=== PATIENT | male | born 1990 | race Caucasian/White ===

== ENCOUNTER 2019-06-03 10:09 | Observation (INO) | payer OTHER, SELFPAY ==
[2019-06-03] VITALS (8 sets, daily range): BP systolic 107–121; BP diastolic 56–92; PULSE 60–84; RESP 14–18; TEMP 36.9–37.3; O2SAT 96–100; BMI 26.2; BMI 25.4
--- NOTE | 2019-06-03 10:16 | EKG12_ITS ---
Test Reason : CP Blood Pressure : / mmHG Vent. Rate : 063 BPM Atrial Rate : 063 BPM P-R Int : 134 ms QRS Dur : 106 ms QT Int : 364 ms P-R-T Axes : 052 066 055 degrees QTc Int : 372 ms Normal sinus rhythm Nonspecific T wave abnormality Abnormal ECG Confirmed by SOREN BALBUENA, JELANI ([id number]), commissioning editor SANTOS BUTT ([id number]) on 06/10/2019 8:41:15 AM Referred By: Elizabeth Benavidez Confirmed By:JELANI DOTY MD
--- NOTE | 2019-06-03 10:45 | RAD_ITS ---
STUDY: X-RAY CHEST REASON FOR EXAM: Male, 28 years old. 24 hour history of right-sided chest pain. TECHNIQUE: Single AP portable view of the chest. COMPARISON: None. FINDINGS: There is evidence of a 10% right pneumothorax. Hyperinflation. Normal size heart. Normal mediastinum and yolette. Normal visualized pulmonary arteries. Normal visualized aortic arch and descending thoracic aorta. Normal visualized thoracic spine. Normal visualized ribs, clavicles, and shoulders. There is no demonstrated abnormality of the visualized soft tissue structures of the upper abdomen. RAD/Chest PA and Lateral IMPRESSION: 10% right pneumothorax. The referring physician was notified. Electronically Signed: Simon Fan, at 11:03 EST , Service support ,
--- NOTE | 2019-06-03 10:51 | ED.DCSUM_ITS ---
- ER Visit Summary Date of Service: 06/03/19 Chief Complaint: Chest pain History of Present Illness: The patient is a 28 M who presents the emergency department with right-sided chest pain. Symptoms began yesterday around 1230. He notes he developed some runny nose and a cough that rarely produces sputum. He states that when he coughs he has more pain on the right side of his chest and back. He states he is felt some wheezing. He denies any history of asthma. No fevers. States that he used to vape but quit several months ago. Denies any chest trauma Physical Examination: Afebrile vital signs are stable Gen: Well-nourished well-developed Head: Normocephalic atraumatic Eyes: Perrl EOMI ENT: TMs clear no rhinorrhea moist mucous membranes Neck: Supple no lymphadenopathy no JVD nontender CVS: Regular rate rhythm no murmurs normal S1-S2 Respiratory: No distress diminished breath sounds on the right chest nontender no crepitance Abdomen: Soft nontender nondistended normal bowel sounds no masses Back: Nontender Extremity: Nontender no edema Skin: Normal color no rash Neuro: alert orientated ?3 CN II-XII intact normal strength sensation reflexes gait cerebellar Psych: Normal affect normal mood Test Results: Chest x-rays obtained. This showed a 10 to 15% spontaneous pneumothorax on the right. Emergency Department Course and Treatment: Chest x-ray findings were discussed with the patient. I spoke with our ekg/ecg technician is youth care professional Dr. Null. Recommendation is for a pigtail catheter to wall suction and overnight stay. I informed the patient of this and he states he is not sure he wants this done. After further discussion the patient provides informed consent both verbal and written for the procedure. She was advised on the risk including but not limited to infection, bleeding, adequate placement of catheter, and pain. Using sterile technique the right mid axillary region (fifth intercostal space) was prepped and washed. Pigtail catheter was inserted using standard technique sutured into place. Bubbling occurred for approximately 15 seconds and then resolved. No further evidence of any air leak. Post procedure x-ray shows resolution of the pneumothorax and adequate placement of the tube. I did provide the patient 5 mg of oxycodone. He has been resting comfortably. Patient will be admitted tonight for continued observation. Impression: 1. Spontaneous right pneumothorax This note was generated with Dragon dictation software. It may contain incorrect words, spelling, and punctuation that were not noted in review of the chart prior to signing ED Disposition - Plan for ED Patient: Disposition: Acute Care Hospital [facility]
--- NOTE | 2019-06-03 12:46 | RAD_ITS ---
STUDY: X-RAY CHEST REASON FOR EXAM: Male, 28 years old. Check tube placement. TECHNIQUE: Single AP portable view of the chest. COMPARISON: Comparison is made with prior study done earlier today. FINDINGS: A small caliber chest tube has been placed in the lateral aspect of the right upper lobe. The right-sided pneumothorax as result. The lungs are clear and expanded. There is no demonstrated pleural abnormality. Normal size heart. Normal mediastinum and yolette. Normal visualized pulmonary arteries. Normal visualized aortic arch and descending thoracic aorta. Normal visualized thoracic spine. Normal visualized ribs, clavicles, and shoulders. There is no demonstrated abnormality of the visualized soft tissue structures of the upper abdomen. RAD/Chest 1 View (Portable) IMPRESSION: The previously seen right-sided pneumothorax has cleared. A small-caliber chest tube is seen in the lateral aspect of the right upper lobe. Electronically Signed: Simon Fan, at 13:11 EST , Service support ,
--- NOTE | 2019-06-03 12:55 | PCM.CONS.PUL ---
Reason for Consult Date of Consultation: 06/03/19 Reason for Consultation: Pneumothorax History of Present Illness: The patient is a 28-year-old male, with a history as outlined below, who presented to the emergency department on June 03 with right-sided chest pain. The patient's pain was worsened with deep inspiration and coughing. He also reported the presence of associated upper respiratory symptoms including rhinorrhea, postnasal drip and cough. The patient does not currently smoke combustible cigarettes. However, he does regularly vape CBD oils. His last use was yesterday. The patient denies any recent trauma. 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 The patient denies a personal history of prior pneumothorax. On presentation to the emergency department, the patient was hemodynamically stable and maintaining appropriate oxygen saturations on room air. A plain film chest x-ray was obtained and did reveal evidence of a right-sided pneumothorax. A small bore pigtail catheter was subsequently placed in the patient's right hemithorax with resolution of the aforementioned pneumothorax. The patient was then admitted to the medical surgical floor for overnight observation and management. Past Medical History Past Medical History (Chronic Problems): Chronic Problems Non-nicotine vapor product user (Chronic) Former cigarette smoker (Chronic) Allergies amoxicillin Allergy (Verified 06/03/19 11:04) Rash Home Medications: Ambulatory Orders Medication Instructions Recorded NK 06/03/19 Smoking Status: Former smoker Tobacco Use: Vapor - *Family History Maternal History Items: - - Patient denies any market paternal or maternal family history including heart disease, diabetes or cancer. Paternal History Items: - - Patient denies any market paternal or maternal family history including heart disease, diabetes or cancer. Review of Systems Constitutional: Denies: Chills, Fever, Weight Change Eyes: Denies: Blurred vision, Double vision HEENT: Reports: Post Nasal Drip, Sinus Drainage. Denies: Head Aches, Sinus Congestion Cardiovascular: Reports: Chest Pain Respiratory: Denies: Cough, Shortness of Breath Gastrointestinal: Denies: Abdominal Pain, Nausea, Vomiting Genitourinary: Denies: Dysuria Musculoskeletal: Reports: Back Pain Skin: Denies: Rash, Wounds Neurological: Denies: Numbness, Tingling, Focal weakness Psychiatric: Denies: Anxiety, Depression, Homicidal Ideations, Suicidal Ideations Hematologic/ Lymphatic: Denies: Easy Bruising, Easy Bleeding Patient Problems: Active and Suspected Problems Spontaneous pneumothorax (Acute) Viral syndrome (Acute) Objective: The patient's most recent lab work, culture data and imaging studies have all been personally reviewed. - Physical Exam Vitals/I&O's: Vital Signs Temp Pulse Resp BP Pulse Ox 99.2 F H 68 15 115/92 H 100 06/03/19 10:11 06/03/19 11:04 06/03/19 11:04 06/03/19 11:04 06/03/19 12:28 Oxygen Flow Rate (L/min) 2 Oxygen Delivery Method Nasal Cannula Weight: 177 lb 7.554 oz Body Mass Index (BMI) 26.2 General: Alert, Oriented x3, Cooperative, No apparent distress HEENT: Atraumatic, PERRLA, Normocephalic Oral: Moist Mucosa, No Gingival or Mucosal Lesions/ Ulcerations Neck: Supple, No Nodes, Trachea Midline Lungs: No rhonchi, No wheeze, No rales, Diminished Cardiovascular: Regular rate, Regular Rhythm, Normal S1, Normal S2, No murmurs Abdomen: Bowel Sounds Present, Soft, Non Tender, Non-Distended Extremities: No clubbing, No cyanosis, No edema Skin: No breakdown Musculoskeletal: No Tenderness to Palpation of Joints or Extremities, No Muscle Wasting Lymphatic: No Cervical, Supraclavicular, or Inguinal Adenopathy Neurological: Cranial nerves II-XII grossly intact, Neuro grossly intact Psych/Mental Status: Alert and oriented to time, place, person, mood and affect Clinical Impression(s) from Imaging Studies Chest X-Ray 06/03/19 10:45 IMPRESSION: 10% right pneumothorax. The referring physician was notified. Electronically Signed: Simon Fan, at 11:03 EST , Service support , Assessment/Plan All Active Problems Spontaneous pneumothorax (Acute) Viral syndrome (Acute) RECOMMENDATIONS: 1. Maintain chest tube to wall suction overnight. 2. Maintain patient on supplemental oxygen via nasal cannula overnight as well. 3. If stable in the morning, chest tube will be water-sealed, with plans to remove. IMPRESSIONS: 1. Primary spontaneous pneumothorax Unclear precipitating etiology for the patient's pneumothorax. The patient has no previous history of such a complication. A small bore chest tube was subsequently placed with resolution of the pneumothorax. I recommended admission to the hospital with the patient to be maintained on wall suction overnight. His chest tube will be placed to waterseal in the morning with plans to repeat a plain film chest x-ray. If the pneumothorax remains absent, his chest tube will be removed. Once a follow-up chest x-ray has been completed after chest tube removal, he can be safely discharged home. The patient was counseled regarding activities that should be avoided, including airline travel, in the immediate future given his pneumothorax. 2. Personal history of vaping CBD oils The patient was counseled extensively regarding the deleterious effects of vaping CBD oils and was strongly encouraged to avoid doing so in the foreseeable future. This note was generated with [employer] dictation software. It may contain incorrect words, spelling, and punctuation that were not noted in checking the note before signing. Code Visit Inpatient E&M: 93879 Init Hosp L3
[2019-06-03] MEDS: oxyCODONE 5 MG Tablet PO (13:01)
--- NOTE | 2019-06-03 13:23 | PCM.HP.STD ---
Problem List (1) Spontaneous pneumothorax Status: Acute (2) Viral syndrome Status: Acute (3) Non-nicotine vapor product user Status: Chronic (4) Former cigarette smoker Status: Chronic History of Present Illness Date of Admission: 06/03/19 Chief Complaint: Chest pain The patient is a 28 y/o M w/ PMHx: Vaping CBD Oils, Former Tobacco use, Overweight who presents to the [facility] ED on 06/03/19 with history of onset of right-sided chest discomfort at approximately 1230 the day prior, right sided from shoulder down the side of his chest and lateral back, 10/10 in severity, stabbing and constant dull pain, worse with deep inspiration as well as coughing or position changes with onset at the same time of rhinorrhea as well as minimally productive cough in addition to sensation of wheezing with no history of recent trauma or falls, 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 Work-up in the ED included T 99.2, heart rate 84, BP 121/69, respiratory rate 18, and a percent room air, no CBC or BMP were performed on patient, initial chest x-ray with a 10% noted right pneumothoraces, repeat film following intervention with resolution of right-sided pneumothoraces with a small caliber chest tube in place in the lateral aspect of the right upper lobe. Pulmonary medicine was consulted per the emergency room and recommended continued chest tube to wall suction overnight with supplemental oxygen as needed with repeat chest x-ray in a.m. and if remains appropriate plan for chest tube transition to waterseal and removal. In the ED patient was administered oxycodone. Past Medical History Past Medical History (Chronic Problems): Chronic Problems Non-nicotine vapor product user (Chronic) Former cigarette smoker (Chronic) Allergies amoxicillin Allergy (Verified 06/03/19 11:04) Rash Home Medications: Ambulatory Orders Medication Instructions Recorded NK 06/03/19 Surgical History: - - Right pinky finger surgery. Psychiatric History: No pertinent psych hx Lives: Spouse/ Significant Other Smoking Status: Former smoker - Patient quit cigarette tobacco usage however he transitioned more recently to vaping with CBD oils. Tobacco Use: Vapor Alcohol: None Drugs: None - *Family History Maternal History Items: - - Patient denies any market paternal or maternal family history including heart disease, diabetes or cancer. Paternal History Items: - - Patient denies any market paternal or maternal family history including heart disease, diabetes or cancer. Review of Systems Constitutional: Reports: Anorexia, Malaise, Weakness, Fatigue. Denies: Chills, Fever, Weight Change HEENT: Reports: Nasal Congestion, Post Nasal Drip, Sinus Congestion, Sinus Drainage. Denies: Head Aches Cardiovascular: Reports: Chest Pain. Denies: Palpitations Respiratory: Reports: Cough, Pleuritic Pain, Wheezing. Denies: Shortness of Breath, Shortness of breath at rest, Shortness of breath upon exertion, Sputum production Gastrointestinal: Denies: Abdominal Pain, Nausea, Vomiting Genitourinary: Denies: Dysuria Musculoskeletal: Reports: Back Pain, Shoulder Pain. Denies: Joint Pain, Joint Tenderness Skin: Denies: Rash, Wounds Neurological: Denies: Numbness, Tingling, Focal weakness Psychiatric: Denies: Anxiety, Depression, Homicidal Ideations, Suicidal Ideations Hematologic/ Lymphatic: Denies: Easy Bruising, Easy Bleeding VTE Information - Inpt Only VTE Present on Admission: No VTE Mechan Device Prophylaxis: None VTE Pharm Prophylaxis ordered?: No Reason prophylaxis not ordered:: Treatment Not Indicated - Low risk. Patient Problems: Active and Suspected Problems Spontaneous pneumothorax (Acute) Viral syndrome (Acute) Subjective: Patient seated upright in ED bed, notes discomfort has improved since chest tube placement. Objective: Physical Examination: General: awake, alert, oriented x 3 and cooperative, seated upright in the ED bed in no apparent distress. Skin: normal color, turgor, no icterus, cyanosis. HEENT: AT/NC, EOMI, PERRLA, mildly dry MM, mild external nare irritation noted, mild rhinorrhea noted, no carotid bruits or JVD noted. Lungs: Diminished breath sounds, greater bases, poor effort likely secondary to discomfort, chest tube recently placed, no rales, rhonchi or wheezing. Heart: Regular rate and rhythm; no gallop, rub audible. Abdomen: soft, NTTP, ND, normal BS, no HSM. Extremities: no cyanosis, clubbing, or edema. Neurological: patient awake, alert, oriented x 3; cognitive function intact; pupils equally reactive to light and accomodation; cranial nerves II-XII grossly normal, moving all 4 extremities, no focal deficits, strength mildly global decrease secondary to acute presentation of recent intervention. Psychiatric: affect appears fatigued, no acute evidence of depressive or anxiety feelings. - Physical Exam Vitals/I&O's: Vital Signs Temp Pulse Resp BP Pulse Ox 99.2 F H 61 18 117/73 100 06/03/19 10:11 06/03/19 12:35 06/03/19 12:35 06/03/19 12:35 06/03/19 12:35 Oxygen Flow Rate (L/min) 3 Oxygen Delivery Method Nasal Cannula Weight: 177 lb 7.554 oz Body Mass Index (BMI) 26.2 Assessment/Plan All Active Problems Spontaneous pneumothorax (Acute) Viral syndrome (Acute) The patient is a 28 y/o M w/ PMHx: Vaping CBD Oils, Former Tobacco use, Overweight who presents to the [facility] ED on 06/03/19 with history of onset of right-sided chest discomfort at approximately 1230 the day prior, right sided from shoulder down the side of his chest and lateral back. (1) Right Sided Chest Pain secondary to Acute Primary Spontaneous Pneumothorax: We will admit the patient to medical surgical floor, obtain admission labs, continue chest tube to suction per pulmonary medicine discretion, continue pulmonary medicine consultation, PRN pain regimen, plan repeat chest x-ray in a.m. with transition to waterseal with discontinuation if clinically appropriate. (2) Suspected Acute Viral Syndrome: Recent onset mild cough as well as runny nose, notable viral illnesses currently, will continue to treat conservatively. (3) Former Tobacco use, Current Vaping: Encourage cessation vaping products and continued cessation cigarette tobacco use. (4) DVT prophylaxis: Low risk. Code Visit OBSV E&M: 02097 Initial observation care L3
[2019-06-03 14:05] LABS: Absolute Lymphocyte Count 1.98 X10^3/uL (0.83-4.51); Absolute Neutrophil Count 3.7 X10^3/uL (2.0-7.7); Basophil# 0.03 X10^3/uL; Basophil% 0.5 % (0-1); Eosinophils% 1.6 % (0-5); Hematocrit 44.2 % (40-54); Hemoglobin 15.5 g/dL (13.0-16.5); Lymphocyte # 1.98 X10^3/ul (4.0); Lymphocyte % 32.2 % (19-41); Mean Corp Hgb Conc 35.1 g/dL (32-36); Mean Corpuscular Hgb 30.3 pg (27.0-32.0); Mean Corpuscular Volume 86.5 fL (80-94); Mean Platelet Vol. 9.8 fl (6.2-12.0); Monocyte# 0.36 X10^3/uL; Monocyte% 5.9 % (0-10); NRBC Flagged by Analyzer 0 % (0-5); Neutrophil # 3.66 X10^3/uL (2.7-7.7); Neutrophil % 59.5 % (47-70); Platelet Count 187 K/mm3 (150-450); RBC Distribution Width CV 11.8 % (11.6-14.6); RBC Distribution Width SD 37.3 fl (35.1-43.9); Red Blood Count 5.11 M/mm3 (4.6-6.2); White Blood Count 6.2 K/mm3 (4.4-11.0)
[2019-06-03 14:13] LABS: Anion Gap 3 (5-15); BUN 10 mg/dL (7-18); BUN/Creat Ratio 10.4 RATIO (10-20); Calcium,Total 9.5 mg/dL (8.5-10.1); Chloride 104 mmol/L (98-107); Creatinine, Serum 0.96 mg/dL (0.70-1.30); EST Glomerular Filtration Rate 100 mL/min (>60); Est Glom Filt Rate - Afr Amer 122 mL/min (>60); Estimated Creatinine Clearance 116.61 ml/min; Glucose 83 mg/dL (74-106); Potassium 3.9 mmol/L (3.5-5.1); Sodium Level 140 mmol/L (136-145)
[2019-06-03] MEDS: 0.9% Normal Saline 1,000 ML 100 ML IV (14:42)
[2019-06-03] MEDS: Morphine 2 MG/ML Syringe IV (14:44)
[2019-06-03] MEDS: 0.9% Saline Lock 10 ML Syringe IV (14:45)
[2019-06-03] MEDS: HYDROcodone Bitartrate/Apap 5/325 Tablet PO (18:13)
[2019-06-04] MEDS: HYDROcodone Bitartrate/Apap 5/325 Tablet PO ×2 (02:20→07:43)
[2019-06-04 02:22] VITALS: BP 108/68; PULSE 53; RESP 16; TEMP 36.4; O2SAT 95
--- NOTE | 2019-06-04 06:47 | PCM.PN.PUL ---
Subjective: The patient was seen and examined at the bedside this morning. Events from the last 24 hours have been reviewed. The patient is currently afebrile, hemodynamically stable and maintaining appropriate oxygen saturations on room air. The patient's chest tube has been maintained to wall suction overnight. The plain film chest x-ray post chest tube insertion revealed resolution of the pneumothorax. The patient remains asymptomatic this morning without complaints of shortness of breath or chest pain. The patient was transitioned to waterseal from wall suction this morning at approximately 0645. After review of the patient's chest x-ray from this morning, his chest tube was removed at the bedside at approximately 0850, after no further evidence of pneumothorax was identified. A follow-up x-ray status post chest tube removal at 1100 hrs. revealed no residual pneumothorax. Objective: The patient's most recent lab work, culture data and imaging studies have all been personally reviewed. - Physical Exam Vitals/I&O's: Vital Signs Temp Pulse Resp BP Pulse Ox 97.6 F L 53 L 16 108/68 95 06/04/19 02:22 06/04/19 02:22 06/04/19 02:22 06/04/19 02:22 06/04/19 02:22 Oxygen Flow Rate (L/min) 3 Oxygen Delivery Method Room Air Weight: 172 lb Body Mass Index (BMI) 25.4 Intake and Output for Last 24 Hours 06/02/19 06/03/19 06/04/19 23:59 23:59 23:59 Intake Total 1228.33 / 1228.33 Output Total 1375 / 1375 Balance -146.67 / -146.67 General: Alert, Oriented x3, Cooperative, No apparent distress HEENT: Atraumatic, PERRLA, Normocephalic Oral: No Gingival or Mucosal Lesions/ Ulcerations Neck: Supple, No Nodes, Trachea Midline Lungs: Normal air movement, No rhonchi, No wheeze, No rales, - - Appropriately positioned chest tube. No air leak noted in the patient's atrium. Cardiovascular: Regular rate, Regular Rhythm, Normal S1, Normal S2, No murmurs Abdomen: Bowel Sounds Present, Soft, Non Tender, Non-Distended Extremities: No clubbing, No cyanosis, No edema Skin: No breakdown Musculoskeletal: No Tenderness to Palpation of Joints or Extremities Lymphatic: No Cervical, Supraclavicular, or Inguinal Adenopathy Neurological: Cranial nerves II-XII grossly intact, Neuro grossly intact Psych/Mental Status: Alert and oriented to time, place, person, mood and affect Labs (Last 48 Hours) 06/03/19 06/03/19 12:15 12:15 WBC 6.2 RBC 5.11 Hgb 15.5 Hct 44.2 MCV 86.5 MCH 30.3 MCHC 35.1 RDW Std Deviation 37.3 RDW Coeff of Robbie 11.8 Plt Count 187 MPV 9.8 Immature Gran % (Auto) 0.300 Neut % (Auto) 59.5 Lymph % (Auto) 32.2 Letcher % (Auto) 5.9 Eos % (Auto) 1.6 Baso % (Auto) 0.5 Absolute Neuts (auto) 3.7 Absolute Lymphs (auto) 1.98 Nucleated RBC % 0 Sodium 140 Potassium 3.9 Chloride 104 Carbon Dioxide 33.0 H Anion Gap 3 L BUN 10 Creatinine 0.96 Estim Creat Clear Calc 116.61 Est GFR (MDRD) Af Amer 122 Est GFR (MDRD) Non-Af 100 BUN/Creatinine Ratio 10.4 Glucose 83 Calcium 9.5 Clinical Impression(s) from Imaging Studies Chest X-Ray 06/03/19 10:45 IMPRESSION: 10% right pneumothorax. The referring physician was notified. Electronically Signed: Simon Fan, at 11:03 EST , Service support , Chest X-Ray 06/03/19 12:46 IMPRESSION: The previously seen right-sided pneumothorax has cleared. A small-caliber chest tube is seen in the lateral aspect of the right upper lobe. Electronically Signed: Simon Fan, at 13:11 EST , Service support , Current Medications Acetaminophen (Tylenol) 650 mg PO Q6H PRN PRN PRN Reason: Non-cardiac pain (mod-severe) Hydrocodone Bitart/Acetaminophen (Cayey 5mg-325mg) 1 - 2 tablet PO Q4H PRN PRN PRN Reason: Pain Score 4-10/10 Last Admin: 06/04/19 02:20 Dose: 2 tablet Documented by: Al Hydroxide/Mg Hydroxide (Mylanta Ii) 15 - 30 ml PO Q4H PRN PRN PRN Reason: INDIGESTION Albuterol Sulfate (Ventolin Aerosols) 2.5 mg INHALATION Q2H PRN PRN PRN Reason: dyspnea, wheezing Dextrose (D50w Syringe) 0 gm IV X1 PRN; Protocol PRN Reason: Hypoglycemia Glucagon () 1 mg IM .X1 PRN PRN Reason: Hypoglycemia Guaifenesin (Robitussin) 20 ml PO Q4H PRN PRN PRN Reason: COUGH Hydralazine HCl (Apresoline Iv) 10 mg IV Q4H PRN PRN PRN Reason: SBP > 160 Magnesium Hydroxide (Milk Of Magnesia) 30 ml PO DAILY PRN PRN Reason: Constipation Morphine Sulfate () 1 - 2 mg IV Q4H PRN PRN PRN Reason: Pain Score 1-1010 Last Admin: 06/03/19 14:44 Dose: 2 mg Documented by: Ondansetron HCl (Zofran) 4 mg IV Q8H PRN PRN PRN Reason: NAUSEA/VOMITING Sodium Chloride () 10 - 40 ml IV UD PRN PRN Reason: SALINE FLUSH Last Admin: 06/03/19 14:45 Dose: 10 ml Documented by: Temazepam (Restoril) 15 mg PO QHS PRN PRN PRN Reason: INSOMNIA Throat Lozenges (Cepacol Sore Throat Lozenge) 1 lozenge MUCOUS MEM Q2H PRN PRN PRN Reason: Sore throat or cough Medical Necessity - Tobacco Use Smoking Status: Current every day smoker Tobacco Use: Cigarettes, Vapor Assessment/Plan All Active Problems Spontaneous pneumothorax (Acute) Viral syndrome (Acute) RECOMMENDATIONS: 1. Once repeat plain film chest x-ray has been completed status post chest tube removal, and as long as there is no residual pneumothorax, the patient can be safely discharged home. 2. The patient was counseled regarding activities that should be avoided, including airline travel, in the foreseeable future. 3. The patient was advised to return to the emergency department with any recurrence of symptoms. IMPRESSIONS: 1. Primary spontaneous pneumothorax Unclear precipitating etiology for the patient's pneumothorax. The patient has no previous history of such a complication. A small bore chest tube was subsequently placed with resolution of the pneumothorax. The patient was maintained on wall suction overnight without evidence of air leak noted this morning. [facility] 0[facility]. Orders for a follow-up plain film chest x-ray have been placed. If the pneumothorax remains absent on waterseal, the patient's chest tube will be removed. Upon successful removal, one additional x-ray will be obtained to ensure stability, after which time, the patient can be safely discharged home. 2. Personal history of vaping CBD oils The patient was counseled extensively regarding the deleterious effects of vaping CBD oils and was strongly encouraged to avoid doing so in the foreseeable future. This note was generated with [employer] dictation software. It may contain incorrect words, spelling, and punctuation that were not noted in checking the note before signing. Code Visit Inpatient E&M: 05387 Subs Hosp L3
[2019-06-04 07:00] VITALS: O2SAT 98
[2019-06-04 07:30] VITALS: BP 112/50; PULSE 59; RESP 16; TEMP 36.9; O2SAT 98
--- NOTE | 2019-06-04 07:45 | RAD_ITS ---
INDICATION: Follow-up for right pneumothorax. EXAMINATION/TECHNIQUE: X-RAY - Chest COMPARISON: Comparison is made with prior examination dated June 03, 2019. FINDINGS: LINES/DEVICES: A small caliber chest tube is seen with the tip in the upper lateral aspect of the right upper lobe. LUNGS: No consolidation, edema or effusion. No pneumothorax. MEDIASTINUM AND CARDIOVASCULAR STRUCTURES: Cardiac silhouette not enlarged. Central airways and mediastinal contour are unremarkable. BONES AND SOFT TISSUES: Unremarkable. RAD/Chest 1 View (Portable) IMPRESSION: Stable examination. No evidence of pneumothorax. Electronically Signed: Simon Fan, at 8:34 EST , Service support ,
--- NOTE | 2019-06-04 11:00 | RAD_ITS ---
STUDY: X-RAY CHEST REASON FOR EXAM: Male, 28 years old. Post chest tube removal. TECHNIQUE: AP portable upright view of the chest on 2 films. COMPARISON: Portable AP upright chest x-ray on 2 films 0744 hours. FINDINGS: Small caliber right chest tube has been removed. No pneumothorax. The lungs are clear and expanded. There is no demonstrated pleural effusion. Normal size heart. Normal mediastinum and yolette. Normal visualized pulmonary arteries. Normal visualized aortic arch and descending thoracic aorta. Normal visualized thoracic spine. Normal visualized ribs, clavicles, and shoulders. There is no demonstrated abnormality of the visualized soft tissue structures of the upper abdomen. RAD/Chest 1 View (Portable) IMPRESSION: No pneumothorax following removal smallbore right chest tube. No acute infiltrate or CHF. Electronically Signed: Richard Juarez MD at 12:31 EST , Service support ,
--- NOTE | 2019-06-04 11:51 | DCINST_ITS ---
- Discharge Diagnoses Current Active Problems: Current Active and Chronic Problems Spontaneous pneumothorax (Acute) Viral syndrome (Acute) Non-nicotine vapor product user (Chronic) Former cigarette smoker (Chronic) You will use the following diet at home:: No restrictions Discharge Activity: Return to Normal Activity Call your doctor if you observe: Shortness of breath, Dizziness, Fainting spells, Chest pain Allergies/Adverse Reactions: Allergies amoxicillin Allergy (Verified 06/03/19 11:04) Rash Medications to take at Discharge NK 06/03/19 Primary Care Physician: Care Physician,No Primary [Primary Care Provider] - Please follow up with your Primary Care Physician in: 1 Week Test Results: Test results from this visit will be discussed in further detail at your follow- up appointment, if applicable. Proposed Discharge Date: 06/04/19
--- NOTE | 2019-06-04 12:47 | DS.PCM_ITS ---
Discharge Date and Diagnosis Date of Admission: 06/03/19 Date of Discharge: 06/04/19 - Primary Discharge Diagnosis Active and Suspected Problems 1. Primary spontaneous pneumothorax 2. Suspected viral URI 3. Vaping CBD oils/former tobacco use - Secondary Discharge Diagnosis Chronic Problems Non-nicotine vapor product user (Chronic) Former cigarette smoker (Chronic) Hospital Course and Treatment Imaging Results: Diagnostic Data Chest X-Ray 06/04/19 11:00 IMPRESSION: No pneumothorax following removal smallbore right chest tube. No acute infiltrate or CHF. Electronically Signed: Richard Juarez MD at 12:31 EST , Service support , Dr. Null-Pulmonary Medicine Operations: None Procedures: None Summary of Care Provided: The patient is a 28 year old M admitted 06/03/2019 due to chest pain. 1. Primary spontaneous pneumothorax, unclear etiology-pulmonary medicine consulted. Chest tube placed with resolution of pneumothorax. Chest tube subsequently removed and additional x-ray showed continued resolution of pneumothorax. Follow-up with primary care provider in 1 week. 2. Suspected viral URI-mild symptoms of nasal congestion, mild cough. Resolving. Continue supportive treatment. 3. Vaping CBD oils/former tobacco use-strongly encouraged cessation of vaping. Patient agreeable. Patient seen and examined prior to discharge. Physical assessment as noted below. Patient is stable for discharge with follow up recommendations as noted above. This patient was seen by WARNER Martinez under the supervision of Dr. Holden. - Physical Exam Vitals/I&O's: Vital Signs Temp Pulse Resp BP Pulse Ox 98.4 F 59 L 16 112/50 L 98 06/04/19 07:30 06/04/19 07:30 06/04/19 07:30 06/04/19 07:30 06/04/19 07:30 Oxygen Flow Rate (L/min) 3 Oxygen Delivery Method Room Air Weight: 172 lb Body Mass Index (BMI) 25.4 Intake and Output for Last 24 Hours 06/02/19 06/03/19 06/04/19 23:59 23:59 23:59 Intake Total 1228.33 / 1228.33 Output Total 1375 / 1375 Balance -146.67 / -146.67 General: Alert, Oriented x3, Cooperative HEENT: Atraumatic, PERRLA, EOMI, Normocephalic Neck: Supple, No JVD, Negative Carotid Bruits Lungs: Clear to auscultation, Normal air movement Cardiovascular: Regular rate, Regular Rhythm, Normal S1, Normal S2, No murmurs Abdomen: Bowel Sounds Present, Soft, Non Tender Extremities: No clubbing, No cyanosis, No edema, Capillary Refill Less than 3 Seconds Skin: No rashes, No breakdown Musculoskeletal: No Tenderness to Palpation of Joints or Extremities Neurological: Cranial nerves II-XII grossly intact, Neuro grossly intact Psych/Mental Status: Normal Affect, Appropriate Laboratory Results 06/03/19 12:15: WBC 6.2, RBC 5.11, Hgb 15.5, Hct 44.2, MCV 86.5, MCH 30.3, MCHC 35.1, RDW Std Deviation 37.3, RDW Coeff of Robbie 11.8, Plt Count 187, MPV 9.8, Immature Gran % (Auto) 0.300, Neut % (Auto) 59.5, Lymph % (Auto) 32.2, Whitfield % (Auto) 5.9, Eos % (Auto) 1.6, Baso % (Auto) 0.5, Absolute Neuts (auto) 3.7, Absolute Lymphs (auto) 1.98, Nucleated RBC % 0 06/03/19 12:15: Sodium 140, Potassium 3.9, Chloride 104, Carbon Dioxide 33.0 H, Anion Gap 3 L, BUN 10, Creatinine 0.96, Estim Creat Clear Calc 116.61, Est GFR (MDRD) Af Amer 122, Est GFR (MDRD) Non-Af 100, BUN/Creatinine Ratio 10.4, Glucose 83, Calcium 9.5 Current Medications Acetaminophen (Tylenol) 650 mg PO Q6H PRN PRN PRN Reason: Non-cardiac pain (mod-severe) Hydrocodone Bitart/Acetaminophen ([place] 5mg-325mg) 1 - 2 tablet PO Q4H PRN PRN PRN Reason: Pain Score 4-10/10 Last Admin: 06/04/19 07:43 Dose: 2 tablet Documented by: Al Hydroxide/Mg Hydroxide (Mylanta Ii) 15 - 30 ml PO Q4H PRN PRN PRN Reason: INDIGESTION Albuterol Sulfate (Ventolin Aerosols) 2.5 mg INHALATION Q2H PRN PRN PRN Reason: dyspnea, wheezing Dextrose (D50w Syringe) 0 gm IV X1 PRN; Protocol PRN Reason: Hypoglycemia Glucagon () 1 mg IM .X1 PRN PRN Reason: Hypoglycemia Guaifenesin (Robitussin) 20 ml PO Q4H PRN PRN PRN Reason: COUGH Hydralazine HCl (Apresoline Iv) 10 mg IV Q4H PRN PRN PRN Reason: SBP > 160 Magnesium Hydroxide (Milk Of Magnesia) 30 ml PO DAILY PRN PRN Reason: Constipation Morphine Sulfate () 1 - 2 mg IV Q4H PRN PRN PRN Reason: Pain Score 1-1010 Last Admin: 06/03/19 14:44 Dose: 2 mg Documented by: Ondansetron HCl (Zofran) 4 mg IV Q8H PRN PRN PRN Reason: NAUSEA/VOMITING Sodium Chloride () 10 - 40 ml IV UD PRN PRN Reason: SALINE FLUSH Last Admin: 06/03/19 14:45 Dose: 10 ml Documented by: Temazepam (Restoril) 15 mg PO QHS PRN PRN PRN Reason: INSOMNIA Throat Lozenges (Cepacol Sore Throat Lozenge) 1 lozenge MUCOUS MEM Q2H PRN PRN PRN Reason: Sore throat or cough Discharge Diet: No Restrictions Discharge Activity: Return to Normal Activity Call your doctor if you observe: Shortness of breath, Dizziness, Fainting spells, Chest pain Home Medications: Medications to take at Discharge NK 06/03/19 Primary Care Physician: Care Physician,No Primary [Primary Care Provider] - Please follow up with your Primary Care Physician in: 1 Week Disposition: Home Minutes spent on discharge:: 35 Patient Condition:: Stable Medical Necessity - Tobacco Use Smoking Status: Current every day smoker Tobacco Use: Cigarettes, Vapor Meaningful Use Info Meaningful Use Diagnoses (Choose all that apply): None applicable
== END 2019-06-04 13:20 | disposition home or self-care (01) ==
LOC: ED 11:51 → MS2 13:46
PROVIDERS: Admitting Provider Family Medicine; Emergency Provider Emergency Medicine; Referring Provider Family Medicine; Visit Provider Internal Medicine
DX: J93.11 Primary spontaneous pneumothorax (principal); F17.290 Nicotine dependence, other tobacco product, uncomplicated; J06.9 Acute upper respiratory infection, unspecified; B97.89 Other viral agents as the cause of diseases classified elsewhere
CPT/HCPCS: 32551; 71045; 71046; 80048; 85025; 93005; 96361; 96374; 99218; 99251; 99285; J7030; A4216; G0378; G0463

== ENCOUNTER 2019-06-10 11:01 | Inpatient (IN) | payer OTHER, SELFPAY ==
[2019-06-03 14:34] VITALS: BMI 25.4
[2019-06-10] VITALS (12 sets, daily range): BP systolic 100–128; BP diastolic 53–81; PULSE 64–78; RESP 16–20; TEMP 36.8–37.3; O2SAT 97–100; BMI 25.1; BMI 24.3
--- NOTE | 2019-06-10 11:31 | RAD_ITS ---
STUDY: X-RAY CHEST REASON FOR EXAM: Male, 28 years old. Chest pain, history spontaneous pneumothorax TECHNIQUE: Inspiratory and expiratory chest x-rays COMPARISON: 06/04/2019 FINDINGS: EKG leads overlie the chest Left lung is clear. There is a right pneumothorax which becomes larger on expiratory films. On expiration film it is approximately 50% of the right hemithorax. There is no mediastinal shift. There is no demonstrated pleural abnormality. Normal size heart. Normal mediastinum and yolette. Normal visualized pulmonary arteries. Normal visualized aortic arch and descending thoracic aorta. Normal visualized thoracic spine. Normal visualized ribs, clavicles, and shoulders. There is no demonstrated abnormality of the visualized soft tissue structures of the upper abdomen. RAD/Chest Insp/Exp 2 View IMPRESSION: Right pneumothorax, approximately 50% on the expiratory film. No mediastinal shift. N.B. : The above information has been verbally conveyed by Richard Glover MD to Gokul Luna MD, on 06/10/2019 12:11:12 (ET). Electronically Signed: Richard Glover MD at 12:14 EST , Service support ,
--- NOTE | 2019-06-10 11:33 | ED.VIS.CHEST ---
History of Present Illness Chief Complaint: Chest Pain Informant: Patient Onset: Yesterday Activity at onset: Rest - sudden onset Timing: Continuous, Waxes and wanes Quality: Pain Location: Right Chest Current Severity: Mild Maximum Severity: Moderate Worsened By: Breathing Relieved By: Nothing Associated Symptoms: Negative for: Nausea, Vomiting, Diaphoresis, Dyspnea, Cough, Fever Narrative: Patient had a spontaneous pneumothorax about a week ago that was treated with a small caliber thoracostomy, he was admitted overnight and it was removed and he was discharged, and he remained fine until yesterday. He is a marijuana smoker, occasionally. He smoked prior to the pneumothorax, and he used it again around 4 days ago. This pain feels similar to the pneumothorax he had before. Prior Similar Symptoms: Yes, - - recent spont PTX - Past Medical History (1) Spontaneous pneumothorax Status: Resolved (2) Non-nicotine vapor product user Status: Chronic Past Medical History - Allergies and Home Meds Allergies/Adverse Reactions: Allergies amoxicillin Allergy (Verified 06/10/19 11:05) Rash Primary Care Physician: Care Physician,No Primary [NON-STAFF] - Surgical History: - - Right pinky finger surgery. Smoking Status: Current every day smoker Drugs: Marijuana - Family History Maternal Family History: Reports: - - Patient denies any market paternal or maternal family history including heart disease, diabetes or cancer. Paternal Family History: Reports: - - Patient denies any market paternal or maternal family history including heart disease, diabetes or cancer. Review of Systems General: Denies: Chills, Fever, Sweats Eyes: Denies: Visual changes - bilaterally, Diplopia ENT: Denies: Rhinorrhea, Sore throat Cardiovascular: Reports: Chest pain. Denies: Palpitations Respiratory: Denies: Dyspnea, Cough, Dyspnea on exertion Gastrointestinal: Denies: Abdominal pain, Nausea, Vomiting, Diarrhea, Melena, Hematochezia Genitourinary: Denies: Dysuria, Hematuria, Frequency Musculoskeletal: Denies: Back pain, Swelling, Extremity Pain Skin: Denies: Rash, Wounds Neurological: Denies: Headache, Weakness, Numbness Physical Exam Vital Signs/Narrative: Vital Signs Temp Pulse Resp BP Pulse Ox 06/10/19 11:02 99.1 F 77 16 128/56 H 99 Inital Vital Signs reviewed: Yes General: Well nourished, Well developed, No Acute Distress Head: Normocephalic, Atraumatic Eyes: Perrl, EOMI ENT: Moist mucous membranes, No rhinorrhea Neck: Supple, Nontender, - - Trachea midline Cardiovascular: Regular rate, Regular rhythm, No murmurs. Negative for: Tachycardia Respiratory: No distress, Chest nontender, - - Decreased breath sounds right side. Otherwise clear.. Negative for: Rales, Rhonchi, Wheezing Abdomen: Soft, Nontender, Nondistended, Normal bowel sounds Back: Nontender, Normal Inspection Extremities: Nontender, No edema. Negative for: Calf Tenderness Skin: Normal color, No rash, No Trauma, - - Right lower anterior chest wall thoracostomy site benign-appearing without signs of infection Neurological: Alert, Oriented x3, Cranial nerves II-XII grossly intact, Normal Strength, Normal Sensation Psychological: Normal affect, Normal Mood Diagnostic/Tx/Re-eval Chest X-Ray - ED: 2 View, Read by ED Physician, Read by Radiologist, - - Right-sided pneumothorax, larger on expiratory films approximately 30% or so - Rhythm Strip Rhythm Strip: Sinus Rhythm Rate: 60 Ectopy: None - EKG Initial EKG Interpretation: Sinus Rhythm, No Acute Injury Pattern - Medical Decision Making Patient was admitted for this before. Chest tube was placed, was uncomfortable but he tolerated. We reinflated his lung. Discussed with hospitalist for admission. Also discussed with Dr. Gifford, pulmonology, who agrees with admitting him for further evaluation. Since he was recently smoking CBD oils or marijuana again, that may be the cause of his recurrent pneumothorax, and a VATS is not necessarily indicated at this time. Procedures Procedure(s): Right thoracostomy. Patient prepped and draped in a sterile fashion at the right second intercostal space. He was locally anesthetized with a total of 5 cc of 2% lidocaine with epinephrine, followed by supplemental 8 cc of plain 1% lidocaine. Several attempts in 2 different areas were made in order to palpate the rib definitively, in order to avoid hitting the neurovascular bundle. I was able to verify that I was going over top of her rib rather than underneath, placing a small caliber chest tube in by modified Seldinger technique. Although I tried to anesthetize the parietal pleura, it was painful. He had a vagal episode when I punctured the parietal pleura briefly while anesthetizing, he did not lose consciousness, his pulse went to the 40s, he was lied supine and given a cold washcloth and Zofran. He recovered uneventfully. Catheter was sutured in place and attached to a Pleur-evac and suction. Placement verified by chest x-ray, showing resolution of pneumothorax. ED Disposition - Plan for ED Patient: Disposition: Acute Care Hospital [facility] Diagnosis: Spontaneous pneumothorax Referrals: Care Physician,No Primary [NON-STAFF] -
--- NOTE | 2019-06-10 11:57 | EKG12_ITS ---
Test Reason : CP Blood Pressure : / mmHG Vent. Rate : 086 BPM Atrial Rate : 086 BPM P-R Int : 102 ms QRS Dur : 096 ms QT Int : 356 ms P-R-T Axes : 065 065 032 degrees QTc Int : 426 ms Normal sinus rhythm Otherwise normal ECG Confirmed by DAISY BALBUENA, JOHAN ([id number]), food expeditor SANTOS BUTT ([id number]) on 06/16/2019 1:10:51 PM Referred By: CONOR Confirmed By:SABRINA VILLA MD
[2019-06-10] MEDS: Ondansetron ODT 4 MG Tablet 8 MG PO (16:30)
[2019-06-10] MEDS: Morphine 4 MG/ML Syringe IV (17:00)
--- NOTE | 2019-06-10 17:15 | RAD_ITS ---
STUDY: X-RAY CHEST REASON FOR EXAM: Male, 28 years old. Chest tube placement. Pneumothorax. TECHNIQUE: Single frontal view of the chest. COMPARISON: Earlier same day. FINDINGS: Status post right chest tube placement. Small residual apical pneumothorax. Cardiac silhouette unremarkable. Pulmonary vascularity unremarkable. Aorta unremarkable. No focal airspace opacities. No pleural effusions. Upper abdomen unremarkable. Osseous structures intact. RAD/Chest 1 View (Portable) IMPRESSION: Status post right chest tube placement. Small residual right apical pneumothorax. Findings discussed with Dr. Luna via telephone at 2:35 PM 06/10/2019. Electronically Signed: Dominic Chaney, at 17:37 EST Tel , Service support ,
--- NOTE | 2019-06-10 18:05 | NURSING ---
Salomon CABA SPONTANEOUS PNEUMOTHORAX
--- NOTE | 2019-06-10 20:36 | PCM.HP.STD ---
Problem List (1) Spontaneous pneumothorax Status: Acute History of Present Illness Date of Admission: 06/10/19 Chief Complaint: Right pneumothorax The patient is a 28 year old M who was seen in the emergency room at [facility] with a chief complaint of increased shortness of breath and right-sided chest pain which started yesterday at lunchtime. Patient was working and became short of breath and had chest discomfort over his right chest area, he had been admitted to the hospital approximately a week ago for a spontaneous right pneumothorax and had a chest tube inserted briefly and was discharged home. Patient denied any chills, sweats, or fever. Evaluation of the patient in the emergency room included a chest x-ray which showed a right pneumothorax approximately 50% with no mediastinal shift. The emergency room physician contacted pulmonary medicine and a chest tube was inserted with good reexpansion of the lung and only a small amount of residual pneumothorax on the right side. Patient was admitted to PCU for spontaneous pneumothorax, he will be seen in consultation by pulmonary medicine. Past Medical History Past Medical History (Chronic Problems): Chronic Problems Non-nicotine vapor product user (Chronic) Former cigarette smoker (Chronic) Allergies amoxicillin Allergy (Verified 06/10/19 11:05) Rash Home Medications: Ambulatory Orders Medication Instructions Recorded NK 06/03/19 Surgical History: - - Right pinky finger surgery. Psychiatric History: No pertinent psych hx Lives: Spouse/ Significant Other Smoking Status: Current every day smoker Tobacco Use: Vapor Alcohol: Occasional Drugs: Marijuana - *Family History Maternal History Items: - - Patient denies any market paternal or maternal family history including heart disease, diabetes or cancer. Paternal History Items: - - Patient denies any market paternal or maternal family history including heart disease, diabetes or cancer. Review of Systems Constitutional: Denies: Anorexia, Chills, Fever, Night Sweats, Malaise, Weakness, Weight Change, Fatigue Eyes: Denies: Cataracts, Conjunctivae Inflammation, Double vision, Drainage HEENT: Denies: Difficulty Swallowing, Dysphasia, Ear Pain, Eye Pain, Hearing Changes, Nasal bleeding, Nasal Congestion, Post Nasal Drip Cardiovascular: Reports: Chest Pain. Denies: Claudication, Chest Pressure, Chest Tightness, Edema, Heaviness, Orthopnea, Palpitations, Paroxysmal Noc. Dyspnea Respiratory: Reports: Pleuritic Pain, Shortness of Breath, Shortness of breath at rest, Shortness of breath upon exertion. Denies: Cough, Hemoptysis, Sputum production, Wheezing Gastrointestinal: Denies: Abdominal Pain, Constipation, Diarrhea, Hematemesis, Hematochezia, Nausea, Melena, Vomiting Genitourinary: Denies: Dysuria, Frequency, Hematuria, Hesitancy, Nocturia, Retention, Urgency Musculoskeletal: Denies: Back Pain, Foot Pain, Hand Pain, Joint Pain, Joint stiffness, Joint swelling, Joint Tenderness Skin: Denies: Dryness, Pruritis, Rash Neurological: Denies: Blurred vision, Double vision, Change in Speech, Slurred speech, Difficulty swallowing, Focal weakness, Headaches, Incoordination, Numbness, Tingling Psychiatric: Denies: Anxiety, Depression, Homicidal Ideations, Suicidal Ideations Endocrine: Denies: Change in Body Habitus, Heat/ Cold Intolerance, Polydipsia, Polyuria Hematologic/ Lymphatic: Denies: Adenopathy, Anemia, Easy Bruising, Easy Bleeding, Petechiae, Purpura VTE Information - Inpt Only VTE Present on Admission: No VTE Mechan Device Prophylaxis: None VTE Pharm Prophylaxis ordered?: No Reason prophylaxis not ordered:: Treatment Not Indicated Patient Problems: Active and Suspected Problems Spontaneous pneumothorax (Acute) - Physical Exam Vitals/I&O's: Vital Signs Temp Pulse Resp BP Pulse Ox 98.4 F 64 16 117/60 99 06/10/19 18:41 06/10/19 18:41 06/10/19 18:41 06/10/19 18:41 06/10/19 18:41 Oxygen Delivery Method Room Air Weight: 74.7 kg Body Mass Index (BMI) 24.3 General: Alert, Oriented x3, Cooperative, No apparent distress, Well developed, Well nourished HEENT: Atraumatic, PERRLA, EOMI, Normocephalic Oral: Moist Mucosa Neck: Supple, No JVD, Trachea Midline, Thyroid Normal Size and Texture Lungs: Clear to auscultation, Normal air movement, No rhonchi, No wheeze, No rales Cardiovascular: Regular rate, Regular Rhythm, Normal S1, Normal S2, No murmurs Abdomen: Bowel Sounds Present, Soft, Non Tender, Non-Distended Extremities: No clubbing, No cyanosis, No edema, Capillary Refill Less than 3 Seconds Skin: No rashes, No breakdown Musculoskeletal: No Tenderness to Palpation of Joints or Extremities Neurological: Cranial nerves II-XII grossly intact, Neuro grossly intact, Muscle tone normal, Sensory exam intact to light touch and pain, Coordination normal Psych/Mental Status: Normal Affect, Appropriate, Alert and oriented to time, place, person, mood and affect Current Medications Acetaminophen (Tylenol) 650 mg PO Q6H PRN PRN PRN Reason: Pain Score 1-3/Temp > 100.7 F Alprazolam (Xanax) 0.5 mg PO QHS PRN PRN PRN Reason: ANXIETY/INSOMNIA Morphine Sulfate () 4 - 6 mg IV Q3H PRN PRN PRN Reason: Pain Score 6-10/10 Ondansetron HCl (Zofran) 4 mg IV Q8H PRN PRN PRN Reason: NAUSEA/VOMITING Oxycodone HCl (Oxyir) 5 mg PO Q4H PRN PRN PRN Reason: Pain Score 4-5/10 Oxycodone HCl (Oxyir) 10 mg PO Q4H PRN PRN PRN Reason: severe pain Assessment/Plan All Active Problems Spontaneous pneumothorax (Acute) Spontaneous pneumothorax (Acute) Viral syndrome (Resolved) #1 recurrent acute spontaneous right pneumothorax-patient will be admitted to PCU, repeat chest x-ray will be obtained in the morning, patient will be seen in consultation by pulmonary medicine. I have written for IV analgesics for the patient as well as Xanax as needed for sleep. Code Visit Inpatient E&M: 59184 Init Hosp L3
[2019-06-10] MEDS: morphine 10 MG/ML Syringe IV (21:23)
[2019-06-10] MEDS: 0.9% Saline Lock 10 ML Syringe IV (21:23)
[2019-06-10] MEDS: ALPRAZolam 0.5 MG Tablet PO (22:38)
[2019-06-11] VITALS (10 sets, daily range): BP systolic 105–125; BP diastolic 55–76; PULSE 58–82; RESP 16; TEMP 36.4–36.7; O2SAT 96–99
--- NOTE | 2019-06-11 05:55 | RAD_ITS ---
STUDY: X-RAY CHEST REASON FOR EXAM: Male, 28 years old. Pain. Evaluate for pneumothorax. TECHNIQUE: Single AP portable view of the chest. COMPARISON: 06/10/2019. FINDINGS: There is a right-sided chest tube projecting over the right upper lung field. The lungs are clear and expanded. There is no demonstrated pleural abnormality. Normal size heart. Normal mediastinum and yolette. Normal visualized pulmonary arteries. Normal visualized aortic arch and descending thoracic aorta. Normal visualized thoracic spine. Normal visualized ribs, clavicles, and shoulders. There is no demonstrated abnormality of the visualized soft tissue structures of the upper abdomen. RAD/Chest 1 View (Portable) IMPRESSION: Previously seen right apical pneumothorax not identified on current study. Right-sided chest tube as described above. Electronically Signed: Holley Olivarez MD at 5:43 EST , Service support ,
[2019-06-11] MEDS: oxyCODONE 5 MG Tablet 10 MG PO ×2 (08:29→14:21)
--- NOTE | 2019-06-11 09:31 | PN_ITS ---
Patient Problems: Active and Suspected Problems Spontaneous pneumothorax (Acute) Subjective: Chief complaint: Follow-up after admission for recurrent right-sided spontaneous pneumothorax. Patient seen and examined. No acute events overnight. He complains of mild right lateral chest pain, improved with pain medication. Denies shortness of breath. Denies cough or sputum production. No fever or chills. His vital signs are stable. - Physical Exam Vitals/I&O's: Vital Signs Temp Pulse Resp BP Pulse Ox 97.6 F L 64 16 106/63 98 06/11/19 08:22 06/11/19 08:22 06/11/19 08:22 06/11/19 08:22 06/11/19 08:22 Oxygen Delivery Method Room Air Weight: 164 lb 10.965 oz Body Mass Index (BMI) 24.3 Intake and Output for Last 24 Hours 06/09/19 06/10/19 06/11/19 23:59 23:59 23:59 Intake Total 740 / 740 120 / 120 Output Total 400 / 400 700 / 700 Balance 340 / 340 -580 / -580 General: Alert, Oriented x3, Cooperative, No apparent distress HEENT: Atraumatic, PERRLA, EOMI, Normocephalic Oral: Moist Mucosa, No Gingival or Mucosal Lesions/ Ulcerations Neck: Supple, No JVD, Negative Carotid Bruits, Trachea Midline, Thyroid Normal Size and Texture Lungs: Clear to auscultation, Normal air movement, No rhonchi, No wheeze, No rales Cardiovascular: Regular rate, Regular Rhythm, Normal S1, Normal S2, No murmurs, PMI Normal Abdomen: Bowel Sounds Present, Soft, Non Tender, Non-Distended, No Hepato- splenomegaly Extremities: No clubbing, No cyanosis, No edema Skin: No rashes, No breakdown Lymphatic: No Cervical, Supraclavicular, or Inguinal Adenopathy Neurological: Cranial nerves II-XII grossly intact, Motor Exam 5/5 strength throughout Psych/Mental Status: Normal Affect, Appropriate, Alert and oriented to time, place, person, mood and affect Clinical Impression(s) from Imaging Studies Chest X-Ray 06/10/19 11:31 IMPRESSION: Right pneumothorax, approximately 50% on the expiratory film. No mediastinal shift. N.B. : The above information has been verbally conveyed by Richard Glover MD to Gokul Luna MD, on 06/10/2019 12:11:12 (ET). Electronically Signed: Richard Glover MD at 12:14 EST , Service support , ADDENDUM: 06/10/19 1221 IMPRESSION: Right pneumothorax, approximately 50% on the expiratory film. No mediastinal shift. N.B. : The above information has been verbally conveyed by Richard Glover MD to Gokul Luna MD, on 06/10/2019 12:11:12 (ET). Electronically Signed: Richard Glover MD at 12:14 EST , Service support , ADDENDUM: 06/10/19 1242 IMPRESSION: Right pneumothorax, approximately 50% on the expiratory film. No mediastinal shift. N.B. : The above information has been verbally conveyed by Richard Glover MD to Gokul Luna MD, on 06/10/2019 12:11:12 (ET). Electronically Signed: Richard Glover MD at 12:14 EST , Service support , Chest X-Ray 06/10/19 17:15 IMPRESSION: Status post right chest tube placement. Small residual right apical pneumothorax. Findings discussed with Dr. Luna via telephone at 2:35 PM 06/10/2019. Electronically Signed: Dominic Chaney, at 17:37 EST Tel , Service support , Chest X-Ray 06/11/19 05:55 IMPRESSION: Previously seen right apical pneumothorax not identified on current study. Right-sided chest tube as described above. Electronically Signed: Holley Olivarez MD at 5:43 EST , Service support , Current Medications Acetaminophen (Tylenol) 650 mg PO Q6H PRN PRN PRN Reason: Pain Score 1-3/Temp > 100.7 F Alprazolam (Xanax) 0.5 mg PO QHS PRN PRN PRN Reason: ANXIETY/INSOMNIA Last Admin: 06/10/19 22:38 Dose: 0.5 mg Documented by: Morphine Sulfate () 4 - 6 mg IV Q3H PRN PRN PRN Reason: Pain Score 6-10/10 Last Admin: 06/10/19 21:23 Dose: 4 mg Documented by: Ondansetron HCl (Zofran) 4 mg IV Q8H PRN PRN PRN Reason: NAUSEA/VOMITING Oxycodone HCl (Oxyir) 5 mg PO Q4H PRN PRN PRN Reason: Pain Score 4-5/10 Oxycodone HCl (Oxyir) 10 mg PO Q4H PRN PRN PRN Reason: Pain Score 6-10/10 Last Admin: 06/11/19 08:29 Dose: 10 mg Documented by: Sodium Chloride () 10 - 40 ml IV UD PRN PRN Reason: SALINE FLUSH Last Admin: 06/10/19 21:23 Dose: 10 ml Documented by: Medical Necessity - Tobacco Use Smoking Status: Current every day smoker Tobacco Use: Vapor Assessment/Plan All Active Problems Spontaneous pneumothorax (Acute) This is a 28 years old male patient presented to the emergency room because of right lateral chest pain and he was found to have right-sided pneumothorax in context of recent discharge from the hospital after admission for spontaneous pneumothorax. #1 recurrent right side spontaneous pneumothorax: Status post insertion of right chest tube. Repeat chest x-ray from today revealed full expansion of the right lung. Patient reported some right lateral chest pain, no shortness of breath. Vital signs are stable, pulse ox is maintained on room air. Patient was disch arged from the hospital 1 week ago after admission for the same problem, had chest tubes and he was discharged. Pulmonology consulted. Plan to keep the chest tube today, remove chest tube tomorrow. #2 DVT prophylaxis: Low risk patient, no prophylaxis indicated. This note was generated with [employer] dictation software. It may contain incorrect words, spelling, and punctuation that were not noted in checking the note before signing. Code Visit Inpatient E&M: 17413 Subs Hosp L2
--- NOTE | 2019-06-11 11:17 | CASEMGMT ---
MEL MEDLEY assessment: Face to Face with patient for initial transition planning/care coordination assessment. MEL MEDLEY introduced self and role at [facility], pt voices understanding and consents to assessment at this time. Pt is sitting up in bed in no distress at this time. Pt is A/Ox4 at this time and answers all questions appropriately at this time. Care providers, pharmacy, and demographics verified/updated at this time. PCP: Latonya Specialists: Pt states no current specialists. [facility]erred [facility]acy[facility] Insurance: MMO Prescription Benefit: MMO Living Will/HPOA: Pt states does not have LW/HPOA and declines info at this time. LNOK: Digna Mckenna, ; Rashmi Mckenna, mother Living Arrangements: Pt states lives with and daughter in home and states no concerns at home at this time. Pt is independent with ADL's. Transportation: Pt states drives self and states no transportation concerns at this time. DME/HHC: Pt states no current DME or need for any at this time. Pt states no hx of HHC or SNF. Pt states no concerns with going home at time of discharge. 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 Pt states quit 'vaping' after last visit for chest tube placement and states drinks ETOH occasionally. Pt states no further concerns/needs at this time. CM to follow for any further discharge planning/needs. Advised pt to ask for CM if any further questions/concerns/needs arise, voices understanding. Pt Goal: Home Plan: [place] MEL MEDLEY
--- NOTE | 2019-06-11 12:33 | CON.PCM_ITS ---
Problem List (1) Spontaneous pneumothorax Status: Acute (2) Non-nicotine vapor product user Status: Chronic (3) Former cigarette smoker Status: Chronic Reason for Consult Date of Consultation: 06/11/19 Reason for Consultation: Recurrent pneumothorax History of Present Illness: The patient is a 28 year old M with past medical history listed below, who presented [facility] on 06/10/2019 secondary to a sudden onset of shortness of breath the day prior to presentation. Patient reportedly had been hospitalized approximately a week ago and treated with a small caliber chest tube secondary to a spontaneous pneumothorax. Patient was admitted overnight and discharged and states that he was at his baseline until the day before yesterday. Patient has a history of vaping with CBD oil and this was credited with previous pneumothorax. Patient states on the day prior to presentation he had a pain similar and presented to the ER secondary to concern that the pneumothorax was back. Patient reported significant discomfort with the placement of the chest tube, feels that his shortness of breath is improved when the pain is better. Patient reports no trauma or vaping since his last episode. 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 Patient denies any significant coughing episodes. Patient was admitted to the floor with chest tube to suction overnight. Patient does report some discomfort, but OxyIR is helpful. No hemoptysis has been reported. Patient denies any family history of smoking. Patient states he is the only smoker in his immediate family. Patient's is a smoker. Patient denies any exposure to asbestos or TB. Review of systems otherwise negative from a constitutional, HEENT, respiratory, cardiovascular, GI, genitourinary, musculoskeletal, skin, neurologic, psychiatric and hematologic system unless stated above. Past Medical History Past Medical History (Chronic Problems): Chronic Problems Non-nicotine vapor product user (Chronic) Former cigarette smoker (Chronic) Allergies amoxicillin Allergy (Verified 06/10/19 11:05) Rash Home Medications: Ambulatory Orders Medication Instructions Recorded NK 06/03/19 Surgical History: - - Right pinky finger surgery. Psychiatric History: No pertinent psych hx Lives: Spouse/ Significant Other Smoking Status: Current every day smoker Tobacco Use: Vapor Alcohol: Occasional Drugs: Marijuana - *Family History Maternal History Items: - - Patient denies any market paternal or maternal family history including heart disease, diabetes or cancer. Paternal History Items: - - Patient denies any market paternal or maternal family history including heart disease, diabetes or cancer. Review of Systems Comment: See HPI Patient Problems: Active and Suspected Problems Spontaneous pneumothorax (Acute) Objective: All imaging was personally reviewed. Patient had significant 30 to 40% pneumothorax on the right on initial presentation. This has completely resolved. No CAT scan is available for review. - Physical Exam Vitals/I&O's: Vital Signs Temp Pulse Resp BP Pulse Ox 36.4 C L 60 16 106/63 98 06/11/19 08:22 06/11/19 11:36 06/11/19 08:22 06/11/19 08:22 06/11/19 08:22 Oxygen Delivery Method Room Air Weight: 74.7 kg Body Mass Index (BMI) 24.3 Intake and Output for Last 24 Hours 06/09/19 06/10/19 06/11/19 23:59 23:59 23:59 Intake Total 740 / 740 120 / 120 Output Total 400 / 400 700 / 700 Balance 340 / 340 -580 / -580 General: Alert, Oriented x3, Cooperative, No apparent distress, Well developed, Well nourished, - - Appears stated age. No conversational dyspnea. HEENT: Atraumatic, PERRLA, EOMI, Normocephalic, - - No scleral icterus or injection noted Oral: Moist Mucosa, No Gingival or Mucosal Lesions/ Ulcerations Neck: Supple, No JVD, No Nodes, Trachea Midline Lungs: Clear to auscultation, Normal air movement, No rhonchi, No wheeze, No rales, - - Slight rub noted on the right chest Cardiovascular: Regular rate, Regular Rhythm, Normal S1, Normal S2, No murmurs, No rub noted, No Gallop Abdomen: Bowel Sounds Present, Soft, Non Tender, Non-Distended Extremities: No clubbing, No cyanosis, No edema, Capillary Refill Less than 3 Seconds Skin: No rashes, No breakdown Musculoskeletal: No Tenderness to Palpation of Joints or Extremities Lymphatic: No Cervical, Supraclavicular, or Inguinal Adenopathy Neurological: Cranial nerves II-XII grossly intact, Neuro grossly intact, Motor Exam 5/5 strength throughout Psych/Mental Status: Alert and oriented to time, place, person, mood and affect Clinical Impression(s) from Imaging Studies Chest X-Ray 06/10/19 11:31 IMPRESSION: Right pneumothorax, approximately 50% on the expiratory film. No mediastinal shift. N.B. : The above information has been verbally conveyed by Richard Glover MD to Gokul Luna MD, on 06/10/2019 12:11:12 (ET). Electronically Signed: Richard Glover MD at 12:14 EST , Service support , ADDENDUM: 06/10/19 1221 IMPRESSION: Right pneumothorax, approximately 50% on the expiratory film. No mediastinal shift. N.B. : The above information has been verbally conveyed by Richard Glover MD to Gokul Luna MD, on 06/10/2019 12:11:12 (ET). Electronically Signed: Richard Glover MD at 12:14 EST , Service support , ADDENDUM: 06/10/19 1242 IMPRESSION: Right pneumothorax, approximately 50% on the expiratory film. No mediastinal shift. N.B. : The above information has been verbally conveyed by Richard Glover MD to Gokul Luna MD, on 06/10/2019 12:11:12 (ET). Electronically Signed: Richard Glover MD at 12:14 EST , Service support , Chest X-Ray 06/10/19 17:15 IMPRESSION: Status post right chest tube placement. Small residual right apical pneumothorax. Findings discussed with Dr. Luna via telephone at 2:35 PM 06/10/2019. Electronically Signed: Dominic Chaney, at 17:37 EST Tel , Service support , Chest X-Ray 06/11/19 05:55 IMPRESSION: Previously seen right apical pneumothorax not identified on current study. Right-sided chest tube as described above. Electronically Signed: Holley Olivarez MD at 5:43 EST , Service support , Current Medications Acetaminophen (Tylenol) 650 mg PO Q6H PRN PRN PRN Reason: Pain Score 1-3/Temp > 100.7 F Alprazolam (Xanax) 0.5 mg PO QHS PRN PRN PRN Reason: ANXIETY/INSOMNIA Last Admin: 06/10/19 22:38 Dose: 0.5 mg Documented by: Morphine Sulfate () 4 - 6 mg IV Q3H PRN PRN PRN Reason: Pain Score 6-10/10 Last Admin: 06/10/19 21:23 Dose: 4 mg Documented by: Ondansetron HCl (Zofran) 4 mg IV Q8H PRN PRN PRN Reason: NAUSEA/VOMITING Oxycodone HCl (Oxyir) 5 mg PO Q4H PRN PRN PRN Reason: Pain Score 4-5/10 Oxycodone HCl (Oxyir) 10 mg PO Q4H PRN PRN PRN Reason: Pain Score 6-10/10 Last Admin: 06/11/19 08:29 Dose: 10 mg Documented by: Sodium Chloride () 10 - 40 ml IV UD PRN PRN Reason: SALINE FLUSH Last Admin: 06/10/19 21:23 Dose: 10 ml Documented by: Assessment/Plan All Active Problems Spontaneous pneumothorax (Acute) RECOMMENDATIONS: 1. Continue chest tube to suction 2. Outpatient alpha-1 antitrypsin testing 3. Transition to waterseal at [address] outpatient [address] surgery evaluation IMPRESSIONS: 1. Recurrent spontaneous pneumothorax on the right Patient with unclear etiology. Patient is very nervous about recurrence and possible need for CT surgery. Patient does appear to have some hyperinflation on chest x-ray. Patient is never had a CT scan for evaluation of the chest. Patient does have a smoking history, but no pulmonary function tests have ever been obtained. Patient will be continued on suction overnight. Patient should be transition to waterseal at 6 AM for potential removal tomorrow. Patient is not reporting any recurrent vaping at this time on my questioning. Alpha-1 antitrypsin deficiency and laying her hands histiocytosis X would be considerations for predisposition 2. History of CBD oil vaping/tobacco abuse Complicates care, management, recovery and prognosis. Stressed to the patient the importance of complete smoking cessation. Patient voiced understanding. Options for smoking cessation were discussed with the patient in detail Code Visit Inpatient E&M: 99237 Init Hosp L2
[2019-06-11] MEDS: Ondansetron 4 MG/2 ML Vial IV (16:54)
[2019-06-11] MEDS: 0.9% Saline Lock 10 ML Syringe IV (16:54)
--- NOTE | 2019-06-11 16:54 | CHAPLAIN ---
Type of Pastoral Visit _x__ Initial Visit ___ Follow-up Visit ___ On-call Visit ___ General Patient Visit ___ Spiritual Assessment ___ Family Conference ___ Bereavement ___ Rapid Response ___ Code Blue ___ Other (describe below) Pastoral Care Referral From _x__ Patient ___ Family ___ Nurse ___ Physician ___ Cell Operation Supervisor ___ Certified Coatings Inspector ___ Other (describe below) Sacrament/Intervention _x__ Active listening ___ Anointing ___ Religion ___ Bereavement ___ Communion _x__ Loren exploration ___ _x__ Life review _x__ Prayer ___ Reconciliation ___ Sacrament of Sick ___ Supportive presence ___ Wedding ___ Other (describe below) Pastoral Comments
[2019-06-12] VITALS (7 sets, daily range): BP systolic 113–129; BP diastolic 53–69; PULSE 63–73; RESP 16–18; TEMP 36.6–37; O2SAT 96–100
--- NOTE | 2019-06-12 07:08 | PCM.PN.PUL ---
Patient Problems: Active and Suspected Problems Spontaneous pneumothorax (Acute) Subjective: The patient was seen and examined at the bedside this morning. Events from the last 24 hours have been reviewed. The patient is currently afebrile, hemodynamically stable and maintaining appropriate oxygen saturations on room air. The patient denies presence of shortness of breath or chest pain this morning. His chest tube was placed to waterseal early this morning. Objective: The patient's most recent lab work, culture data and imaging studies have all been personally reviewed. - Physical Exam Vitals/I&O's: Vital Signs Temp Pulse Resp BP Pulse Ox 98.6 F 71 16 117/53 L 98 06/12/19 03:00 06/12/19 03:00 06/12/19 03:00 06/12/19 03:00 06/12/19 03:00 Oxygen Delivery Method Room Air Weight: 164 lb 10.965 oz Body Mass Index (BMI) 24.3 Intake and Output for Last 24 Hours 06/10/19 06/11/19 06/12/19 23:59 23:59 23:59 Intake Total 740 / 740 1870 / 1870 75 / 75 Output Total 400 / 400 2375 / 2375 Balance 340 / 340 -505 / -505 75 / 75 General: Alert, Oriented x3, Cooperative, No apparent distress HEENT: Atraumatic, PERRLA, Normocephalic Oral: Moist Mucosa, No Gingival or Mucosal Lesions/ Ulcerations Neck: Supple, No Nodes, Trachea Midline Lungs: Normal air movement, No rhonchi, No wheeze, No rales, - - Small bore chest tube in place. No air leak noted in atrium. Cardiovascular: Regular rate, Regular Rhythm, Normal S1, Normal S2, No murmurs Abdomen: Bowel Sounds Present, Soft, Non Tender, Non-Distended Extremities: No clubbing, No cyanosis, No edema Skin: No breakdown Musculoskeletal: No Tenderness to Palpation of Joints or Extremities, No Muscle Wasting Lymphatic: No Cervical, Supraclavicular, or Inguinal Adenopathy Neurological: Cranial nerves II-XII grossly intact, Neuro grossly intact Psych/Mental Status: Alert and oriented to time, place, person, mood and affect Clinical Impression(s) from Imaging Studies Chest X-Ray 06/10/19 11:31 IMPRESSION: Right pneumothorax, approximately 50% on the expiratory film. No mediastinal shift. N.B. : The above information has been verbally conveyed by Richard Glover MD to Gokul Luna MD, on 06/10/2019 12:11:12 (ET). Electronically Signed: Richard Glover MD at 12:14 EST , Service support , ADDENDUM: 06/10/19 1221 IMPRESSION: Right pneumothorax, approximately 50% on the expiratory film. No mediastinal shift. N.B. : The above information has been verbally conveyed by Richard Glover MD to Gokul Luna MD, on 06/10/2019 12:11:12 (ET). Electronically Signed: Richard Glover MD at 12:14 EST , Service support , ADDENDUM: 06/10/19 1242 IMPRESSION: Right pneumothorax, approximately 50% on the expiratory film. No mediastinal shift. N.B. : The above information has been verbally conveyed by Richard Glover MD to Gokul Luna MD, on 06/10/2019 12:11:12 (ET). Electronically Signed: Richard Glover MD at 12:14 EST , Service support , Chest X-Ray 06/10/19 17:15 IMPRESSION: Status post right chest tube placement. Small residual right apical pneumothorax. Findings discussed with Dr. Luna via telephone at 2:35 PM 06/10/2019. Electronically Signed: Dominic Chaney, at 17:37 EST Tel , Service support , Chest X-Ray 06/11/19 05:55 IMPRESSION: Previously seen right apical pneumothorax not identified on current study. Right-sided chest tube as described above. Electronically Signed: Holley Olivarez MD at 5:43 EST , Service support , Current Medications Acetaminophen (Tylenol) 650 mg PO Q6H PRN PRN PRN Reason: Pain Score 1-3/Temp > 100.7 F Alprazolam (Xanax) 0.5 mg PO QHS PRN PRN PRN Reason: ANXIETY/INSOMNIA Last Admin: 06/10/19 22:38 Dose: 0.5 mg Documented by: Morphine Sulfate () 4 - 6 mg IV Q3H PRN PRN PRN Reason: Pain Score 6-10/10 Last Admin: 06/10/19 21:23 Dose: 4 mg Documented by: Ondansetron HCl (Zofran) 4 mg IV Q8H PRN PRN PRN Reason: NAUSEA/VOMITING Last Admin: 06/11/19 16:54 Dose: 4 mg Documented by: Oxycodone HCl (Oxyir) 5 mg PO Q4H PRN PRN PRN Reason: Pain Score 4-5/10 Oxycodone HCl (Oxyir) 10 mg PO Q4H PRN PRN PRN Reason: Pain Score 6-10/10 Last Admin: 06/11/19 14:21 Dose: 10 mg Documented by: Sodium Chloride () 10 - 40 ml IV UD PRN PRN Reason: SALINE FLUSH Last Admin: 06/11/19 16:54 Dose: 10 ml Documented by: Medical Necessity - Tobacco Use Smoking Status: Current every day smoker Tobacco Use: Vapor Assessment/Plan All Active Problems Spontaneous pneumothorax (Acute) RECOMMENDATIONS: 1. Place chest tube to waterseal. Orders for repeat plain film chest x-ray in 2 hours have been placed. 2. Given the conservative nature of management currently be employed, if no residual pneumothorax is noted on follow-up x-ray, will remove chest tube and obtain additional x-ray 2 hours post removal. 3. If no residual pneumothorax is noted on the patient's follow-up chest x-ray after chest tube removal, he can be discharged home. 4. The patient was counseled regarding activities that should be avoided, including airline travel, in the foreseeable future. The patient was advised to return to the emergency department with any recurrence of symptoms. IMPRESSIONS: 1. Recurrent spontaneous pneumothorax on the right The patient presented to the hospital with recurrent pneumothorax 1 week after his last hospitalization, which required tube thoracotomy. The patient's pneumothorax has resolved in the setting of small bore chest tube placement. The etiology for the patient's recurrence is unclear. The patient's chest tube was able to be removed on the morning of June 12, after no residual pneumothorax was noted following the chest tube being placed to waterseal. I would recommend that one additional x-ray be obtained in 2 hours following chest tube removal. If negative, the patient can be safely discharged home. The patient was advised that if recurrence were to occur in the future, he would require evaluation by thoracic surgery. 2. History of CBD oil vaping/tobacco abuse Complicates care, management, recovery and prognosis. Complete tobacco cessation was strongly encouraged. This note was generated with [employer] dictation software. It may contain incorrect words, spelling, and punctuation that were not noted in checking the note before signing. Code Visit Inpatient E&M: 36118 Subs Hosp L3
--- NOTE | 2019-06-12 08:52 | PCM.PROGNOTE ---
Patient Problems: Active and Suspected Problems Spontaneous pneumothorax (Acute) Subjective: Chief complaint: Follow-up after admission for recurrent right-sided pneumothorax status post chest tube insertion. Patient seen and examined. No acute events overnight. No complaints apart from right lateral chest discomfort due to the chest tube. No shortness of breath. Vital signs are stable, pulse ox is maintained on room air. - Physical Exam Vitals/I&O's: Vital Signs Temp Pulse Resp BP Pulse Ox 98 F 70 16 113/68 100 06/12/19 08:42 06/12/19 08:42 06/12/19 08:42 06/12/19 08:42 06/12/19 08:42 Oxygen Delivery Method Room Air Weight: 164 lb 10.965 oz Body Mass Index (BMI) 24.3 Intake and Output for Last 24 Hours 06/10/19 06/11/19 06/12/19 23:59 23:59 23:59 Intake Total 740 / 740 1870 / 1870 75 / 75 Output Total 400 / 400 2375 / 2375 Balance 340 / 340 -505 / -505 75 / 75 General: Alert, Oriented x3, Cooperative, No apparent distress HEENT: Atraumatic, PERRLA, EOMI, Normocephalic Oral: Moist Mucosa, No Gingival or Mucosal Lesions/ Ulcerations Neck: Supple, No JVD, Negative Carotid Bruits, Trachea Midline, Thyroid Normal Size and Texture Lungs: Clear to auscultation, Normal air movement, No rhonchi, No wheeze, No rales Cardiovascular: Regular rate, Regular Rhythm, Normal S1, Normal S2, No murmurs, PMI Normal Abdomen: Bowel Sounds Present, Soft, Non Tender, Non-Distended, No Hepato-splenomegaly Extremities: No clubbing, No cyanosis, No edema Skin: No rashes, No breakdown Lymphatic: No Cervical, Supraclavicular, or Inguinal Adenopathy Neurological: Cranial nerves II-XII grossly intact, Neuro grossly intact Psych/Mental Status: Normal Affect, Appropriate, Alert and oriented to time, place, person, mood and affect Current Medications Acetaminophen (Tylenol) 650 mg PO Q6H PRN PRN PRN Reason: Pain Score 1-3/Temp > 100.7 F Alprazolam (Xanax) 0.5 mg PO QHS PRN PRN PRN Reason: ANXIETY/INSOMNIA Last Admin: 11/13/19 22:38 Dose: 0.5 mg Documented by: Morphine Sulfate () 4 - 6 mg IV Q3H PRN PRN PRN Reason: Pain Score 6-10/10 Last Admin: 06/10/19 21:23 Dose: 4 mg Documented by: Ondansetron HCl (Zofran) 4 mg IV Q8H PRN PRN PRN Reason: NAUSEA/VOMITING Last Admin: 06/11/19 16:54 Dose: 4 mg Documented by: Oxycodone HCl (Oxyir) 5 mg PO Q4H PRN PRN PRN Reason: Pain Score 4-5/10 Oxycodone HCl (Oxyir) 10 mg PO Q4H PRN PRN PRN Reason: Pain Score 6-10/10 Last Admin: 06/11/19 14:21 Dose: 10 mg Documented by: Sodium Chloride () 10 - 40 ml IV UD PRN PRN Reason: SALINE FLUSH Last Admin: 06/11/19 16:54 Dose: 10 ml Documented by: Medical Necessity - Tobacco Use Smoking Status: Current every day smoker Tobacco Use: Vapor Assessment/Plan All Active Problems Spontaneous pneumothorax (Acute) This is a 28 years old male patient presented to the emergency room because of right lateral chest pain and he was found to have right-sided pneumothorax in context of recent discharge from the hospital after admission for spontaneous pneumothorax. #1 recurrent right side spontaneous pneumothorax: Status post insertion of right chest tube. Respiratory status stable, pulse ox is maintained on room air, vital signs are stable. Patient was discharged from the hospital 1 week ago after admission for the same problem, had chest tube which was removed and he was discharged. Pulmonology consulted. Plan according to pulmonology is to clamp the tube later today, repeat chest x-ray tomorrow. #2 DVT prophylaxis: Low risk patient, no prophylaxis indicated. This note was generated with [employer] dictation software. It may contain incorrect words, spelling, and punctuation that were not noted in checking the note before signing. Code Visit Inpatient E&M: 18359 Subs Hosp L2
--- NOTE | 2019-06-12 09:00 | RAD_ITS ---
STUDY: X-RAY CHEST REASON FOR EXAM: Male, 28 years old. Right-sided pneumothorax and chest tube placement. TECHNIQUE: Single AP portable view of the chest. COMPARISON: Comparison is made with prior examination dated June 11, 2019. FINDINGS: A small caliber right-sided chest tube is seen with the tip in the lateral portion of the right upper lobe. No evidence of pneumothorax at this time. There is no demonstrated pleural abnormality. Normal size heart. Normal mediastinum and yolette. Normal visualized pulmonary arteries. Normal visualized aortic arch and descending thoracic aorta. Normal visualized thoracic spine. Normal visualized ribs, clavicles, and shoulders. There is no demonstrated abnormality of the visualized soft tissue structures of the upper abdomen. RAD/Chest 1 View (Portable) IMPRESSION: No evidence of pneumothorax at this time. Electronically Signed: Simon Fan, at 12:58 EST , Service support ,
--- NOTE | 2019-06-12 12:00 | RAD_ITS ---
STUDY: X-RAY CHEST REASON FOR EXAM: Male, 28 years old. Removal of the small-caliber right-sided chest tube. TECHNIQUE: Single AP portable view of the chest. COMPARISON: Comparison is made with prior examination done earlier today. FINDINGS: EKG electrodes are seen. The right-sided the small caliber chest tube has been removed. The lungs are clear and expanded. There is no demonstrated pleural abnormality. Normal size heart. Normal mediastinum and yolette. Normal visualized pulmonary arteries. Normal visualized aortic arch and descending thoracic aorta. Normal visualized thoracic spine. Normal visualized ribs, clavicles, and shoulders. There is no demonstrated abnormality of the visualized soft tissue structures of the upper abdomen. RAD/Chest 1 View (Portable) IMPRESSION: No evidence of right-sided pneumothorax at this time. Electronically Signed: Simon Fan, at 13:46 EST , Service support ,
--- NOTE | 2019-06-12 13:04 | DCINST_ITS ---
- Discharge Diagnoses Current Active Problems: Current Active and Chronic Problems Spontaneous pneumothorax (Acute) You will use the following diet at home:: Regular Your food should be the consistency of: Regular Discharge Activity: Return to Normal Activity Weight Bearing Status: Weight bearing as tolerated Call your doctor if you observe: Fever of 101 or Higher, Shortness of breath, Dizziness, Fainting spells, Chest pain, Increased palpitations (irregular heartbeat), Uncontrolled pain Additional Dressing/Incision Instructions:: Use Aleve or Tylenol PRN for pain. Instructions: Pneumothorax (Collapsed Lung) Allergies/Adverse Reactions: Allergies amoxicillin Allergy (Verified 06/10/19 11:05) Rash Medications to take at Discharge NK 06/03/19 Primary Care Physician: Care Physician,No Primary [NON-STAFF] - Please follow up with your Primary Care Physician in: 1 week. Test Results: Test results from this visit will be discussed in further detail at your follow- up appointment, if applicable.
--- NOTE | 2019-06-12 13:51 | DS.PCM_ITS ---
Discharge Date and Diagnosis Date of Admission: 06/10/19 Date of Discharge: 06/12/19 - Primary Discharge Diagnosis Active and Suspected Problems Recurrent spontaneous right pneumothorax. - Secondary Discharge Diagnosis Chronic Problems Non-nicotine vapor product user (Chronic) Former cigarette smoker (Chronic) Hospital Course and Treatment Imaging Results: 06/12/19 09:00 CXR [Chest 1 View (Portable)] [RAD] Urgent 06/12/19 12:00 CXR [Chest 1 View (Portable)] [RAD] Urgent Clinical Impression(s) from Imaging Studies Chest X-Ray 06/10/19 11:31 IMPRESSION: Right pneumothorax, approximately 50% on the expiratory film. No mediastinal shift. N.B. : The above information has been verbally conveyed by Richard Glover MD to Gokul Luna MD, on 06/10/2019 12:11:12 (ET). Electronically Signed: Richard Glover MD at 12:14 EST , Service support , ADDENDUM: 06/10/19 1221 IMPRESSION: Right pneumothorax, approximately 50% on the expiratory film. No mediastinal shift. N.B. : The above information has been verbally conveyed by Richard Gloevr MD to Gokul Luna MD, on 06/10/2019 12:11:12 (ET). Electronically Signed: Richard Glover MD at 12:14 EST , Service support , ADDENDUM: 06/10/19 1242 IMPRESSION: Right pneumothorax, approximately 50% on the expiratory film. No mediastinal shift. N.B. : The above information has been verbally conveyed by Richard Glover MD to Gokul Luna MD, on 06/10/2019 12:11:12 (ET). Electronically Signed: Richard Glover MD at 12:14 EST , Service support , Chest X-Ray 06/10/19 17:15 IMPRESSION: Status post right chest tube placement. Small residual right apical pneumothorax. Findings discussed with Dr. Luna via telephone at 2:35 PM 06/10/2019. Electronically Signed: Dominic Chaney, at 17:37 EST Tel , Service support , Chest X-Ray 06/11/19 05:55 IMPRESSION: Previously seen right apical pneumothorax not identified on current study. Right-sided chest tube as described above. Electronically Signed: Holley Olivarez MD at 5:43 EST , Service support , Chest X-Ray 06/12/19 09:00 IMPRESSION: No evidence of pneumothorax at this time. Electronically Signed: Simon Fan, at 12:58 EST , Service support , Chest X-Ray 06/12/19 12:00 IMPRESSION: No evidence of right-sided pneumothorax at this time. Electronically Signed: Simon Fan, at 13:46 EST , Service support , Dr. Gifford/Dr. Null, pulmonology. Operations: None Procedures: None Summary of Care Provided: Patient seen and examined on the day of discharge and appeared to be stable to discharge home. Chest tube was taken out this morning and repeat chest x-ray afterwards revealed no evidence of pneumothorax. Patient respiratory status remained stable and remained on room air. Other vital signs were stable. The patient is a 28 year old M patient presented to the emergency department because of right lateral chest pain and he was found to have right-sided pneumo thorax. Patient had a recent history of spontaneous right pneumothorax and he was discharged from the hospital around 1 week ago. Patient has been using CBD oil and vapor. Chest tube was inserted and was connected to underwater seal. Patient was treated with pain medications and oxygen and he did very well. After insertion of the chest tube, right lung is fully expanded. Repeat chest x-ray showed full expansion of the right lung. His vital signs been stable and his pulse ox remained normal on room air. On the day of discharge, repeat chest x-ray done and showed full expansion of the right lung. Chest tube was taken out on the morning of the day of discharge and repeat chest x-ray afterwards showed no evidence of pneumothorax. Patient was informed that if he ended up h aving this pneumothorax again, he will need to be transferred to a tertiary care center for evaluation by cardiothoracic surgery. Patient discharged home in a stable medical condition, recommended to use [id number] Tylenol or Aleve for pain control, follow-up with PCP in 1 week. - Physical Exam Vitals/I&O's: Vital Signs Temp Pulse Resp BP Pulse Ox 98 F 65 16 113/68 100 06/12/19 08:42 06/12/19 10:59 06/12/19 08:42 06/12/19 08:42 06/12/19 08:42 Oxygen Delivery Method Room Air Weight: 164 lb 10.965 oz Body Mass Index (BMI) 24.3 Intake and Output for Last 24 Hours 06/10/19 06/11/19 06/12/19 23:59 23:59 23:59 Intake Total 740 / 740 1870 / 1870 1075 / 1075 Output Total 400 / 400 2375 / 2375 700 / 700 Balance 340 / 340 -505 / -505 375 / 375 General: Alert, Oriented x3, Cooperative, No apparent distress HEENT: Atraumatic, PERRLA, EOMI, Normocephalic Oral: Moist Mucosa, No Gingival or Mucosal Lesions/ Ulcerations Neck: Supple, No JVD, Negative Carotid Bruits, Trachea Midline, Thyroid Normal Size and Texture Lungs: Clear to auscultation, Normal air movement, No rhonchi, No wheeze, No rales Cardiovascular: Regular rate, Regular Rhythm, Normal S1, Normal S2, PMI Normal Abdomen: Bowel Sounds Present, Soft, Non Tender, Non-Distended, No Hepato- splenomegaly Extremities: No clubbing, No cyanosis, No edema Skin: No rashes, No breakdown Lymphatic: No Cervical, Supraclavicular, or Inguinal Adenopathy Neurological: Cranial nerves II-XII grossly intact, Neuro grossly intact Psych/Mental Status: Normal Affect, Appropriate Current Medications Acetaminophen (Tylenol) 650 mg PO Q6H PRN PRN PRN Reason: Pain Score 1-3/Temp > 100.7 F Alprazolam (Xanax) 0.5 mg PO QHS PRN PRN PRN Reason: ANXIETY/INSOMNIA Last Admin: 06/10/19 22:38 Dose: 0.5 mg Documented by: Morphine Sulfate () 4 - 6 mg IV Q3H PRN PRN PRN Reason: Pain Score 6-10/10 Last Admin: 06/10/19 21:23 Dose: 4 mg Documented by: Ondansetron HCl (Zofran) 4 mg IV Q8H PRN PRN PRN Reason: NAUSEA/VOMITING Last Admin: 06/11/19 16:54 Dose: 4 mg Documented by: Oxycodone HCl (Oxyir) 5 mg PO Q4H PRN PRN PRN Reason: Pain Score 4-5/10 Oxycodone HCl (Oxyir) 10 mg PO Q4H PRN PRN PRN Reason: Pain Score 6-10/10 Last Admin: 06/11/19 14:21 Dose: 10 mg Documented by: Sodium Chloride () 10 - 40 ml IV UD PRN PRN Reason: SALINE FLUSH Last Admin: 06/11/19 16:54 Dose: 10 ml Documented by: Discharge Activity: Return to Normal Activity Weight Bearing Status: Weight bearing as tolerated Call your doctor if you observe: Fever of 101 or Higher, Shortness of breath, Dizziness, Fainting spells, Chest pain, Increased palpitations (irregular heartbeat), Uncontrolled pain Additional Dressing/Incision Instructions:: Use Aleve or Tylenol PRN for pain. Home Medications: Medications to take at Discharge NK 06/03/19 Primary Care Physician: Care Physician,No Primary [NON-STAFF] - Please follow up with your Primary Care Physician in: 1 week. Patient Instructions: Pneumothorax (Collapsed Lung) Disposition: Home Minutes spent on discharge:: 26 Patient Condition:: Stable Medical Necessity - Tobacco Use Smoking Status: Current every day smoker Tobacco Use: Vapor Meaningful Use Info Meaningful Use Diagnoses (Choose all that apply): None applicable Code Visit Inpatient E&M: 30133 Disch Hosp
== END 2019-06-12 14:19 | disposition home or self-care (01) | DRG 201 ==
LOC: ED 17:10 → PCU 21:12
PROVIDERS: Admitting Provider Internal Medicine; Emergency Provider Emergency Medicine; Family Provider Internal Medicine; PCP Internal Medicine; Visit Provider Hospitalist
DX: J93.83 Other pneumothorax (principal); Z87.891 Personal history of nicotine dependence
CPT/HCPCS: 32551; 71045; 71046; 93005; 94762; 99284; A4216; J2405

== ENCOUNTER → 2019-06-19 12:08 | Outpatient (CLI) | payer OTHER, SELFPAY ==
[2019-06-19 09:19] VITALS: BMI 24.6
--- NOTE | 2019-06-19 12:10 | RAD_ITS ---
STUDY: X-RAY CHEST REASON FOR EXAM: Male, 28 years old. History of spontaneous pneumothorax. TECHNIQUE: PA and lateral views of the chest. COMPARISON: Comparison is made with prior study dated June 12, 2019. FINDINGS: There is evidence of a 15% right pneumothorax. Hyperinflation. Normal size heart. Normal mediastinum and yolette. Normal visualized pulmonary arteries. Normal visualized aortic arch and descending thoracic aorta. Normal visualized thoracic spine. Normal visualized ribs, clavicles, and shoulders. There is no demonstrated abnormality of the visualized soft tissue structures of the upper abdomen. RAD/Chest PA and Lateral IMPRESSION: 15% right pneumothorax. Electronically Signed: Simon Fan, at 13:25 EST , Service support ,
== END ==
PROVIDERS: Family Provider Internal Medicine; PCP Internal Medicine; Referring Provider Nurse Practitioner Acute Care; Visit Provider Nurse Practitioner Acute Care
DX: J93.83 Other pneumothorax (principal)
CPT/HCPCS: 71046

== ENCOUNTER → 2019-06-22 14:45 | Outpatient (CLI) | payer OTHER, SELFPAY ==
[2019-06-19 09:19] VITALS: BMI 24.6
--- NOTE | 2019-06-22 14:50 | RAD_ITS ---
STUDY: X-RAY CHEST REASON FOR EXAM: Male, 28 years old. Pneumothorax. TECHNIQUE: PA and lateral views of the chest. COMPARISON: 06/19/2019. FINDINGS: The lungs are clear and expanded. Redemonstrated is a right-sided pneumothorax, slightly decreased in size in the interval. Normal size heart. Normal mediastinum and yolette. Normal visualized pulmonary arteries. Normal visualized aortic arch and descending thoracic aorta. Normal visualized thoracic spine. Normal visualized ribs, clavicles, and shoulders. There is no demonstrated abnormality of the visualized soft tissue structures of the upper abdomen. RAD/Chest PA and Lateral IMPRESSION: Right-sided pneumothorax, slightly decreased in size in the interval. Electronically Signed: Holley Olivarez MD at 2:53 EST , Service support ,
== END ==
PROVIDERS: Family Provider Internal Medicine; PCP Internal Medicine; Referring Provider Nurse Practitioner Acute Care; Visit Provider Nurse Practitioner Acute Care
DX: J93.83 Other pneumothorax (principal)
CPT/HCPCS: 71046

== ENCOUNTER → 2019-07-09 13:46 | Outpatient (CLI) | payer OTHER, SELFPAY ==
[2019-07-09 13:33] VITALS: BMI 24.6
--- NOTE | 2019-07-09 13:48 | RAD_ITS ---
STUDY: X-RAY CHEST REASON FOR EXAM: Male, 28 years old. Pneumothorax TECHNIQUE: Frontal and lateral views COMPARISON: June 22, 2019 FINDINGS: The lungs are hyperaerated. Interval resolution of right pneumothorax since the previous study. There is no demonstrated pleural abnormality. Normal size heart. Normal mediastinum and yolette. Normal visualized pulmonary arteries. Normal visualized aortic arch and descending thoracic aorta. Normal visualized thoracic spine. Normal visualized ribs, clavicles, and shoulders. There is no demonstrated abnormality of the visualized soft tissue structures of the upper abdomen. RAD/Chest PA and Lateral IMPRESSION: The lungs are hyperaerated. Interval resolution of right pneumothorax since the previous study. Electronically Signed: Aleksandr Bernard DO at 23:59 EST Tel [phone], Service support ,
== END ==
PROVIDERS: Family Provider Internal Medicine; PCP Internal Medicine; Referring Provider Nurse Practitioner Acute Care; Visit Provider Nurse Practitioner Acute Care
DX: J93.83 Other pneumothorax (principal)
CPT/HCPCS: 71046